=== PATIENT | male | born 1965 | race Caucasian/White ===

== ENCOUNTER 2016-12-20 14:43 | Day surgery (SDC) | payer OTHER ==
[~2016-12-20] VITALS: Ht 170.2 cm; Wt 88.5 kg
[~2016-12-20 14:43] MED LIST: AMLO10TA3 PO; BACL10TA PO; HYDR-3740 PO; KEN25CR EXT; LORA2TAB PO; NORT75CA PO; OMEP-113 PO; ONDA4TAB6 PO; PRE20 PO; SECU150P2 SQ; SUCR1TAB30 PO; Sodium Chloride LOK Flush 10 mL Syringe IV PRN; TRAM50TA2 PO; fentaNYL-PF 50 mCg/mL 2 mL Inj IVPUSH PRN
[2016-12-20 15:14] VITALS: BP 138/95; PULSE 79; RESP 16; O2SAT 96
[2016-12-20] MEDS ORDERED: LAMO200T2 PO (15:20)
[2016-12-20] MEDS ORDERED: LAMO25TA PO (15:20)
[2016-12-20] MEDS ORDERED: BUSP10TA2 PO (15:20)
[2016-12-20] MEDS: 0.9% Sodium Chloride 1,000 ML IV SCH ×2 (15:56→16:02)
[2016-12-20 16:08] VITALS: BP 130/91; PULSE 75; RESP 16; O2SAT 93
[2016-12-20 16:18] VITALS: BP 138/88; PULSE 76; RESP 14; O2SAT 93
[2016-12-20 16:28] VITALS: BP 134/83; PULSE 76; RESP 14; O2SAT 93
[2016-12-20 16:38] VITALS: BP 133/83; PULSE 67; RESP 14; O2SAT 93
[2016-12-20 16:47] VITALS: BP 145/96; PULSE 72; RESP 14; O2SAT 94
--- NOTE | 2016-12-20 23:28 | ENDO ---
[address] [address] ENDOSCOPY PROCEDURE PATIENT: DEB CONNELLY : 1965 MR#: [id number] ADMIT: 12/20/2016 JOB ID: [id number] DATE OF SERVICE: 12/20/2016 OPERATIVE PROCEDURE: Colonoscopy. PREOPERATIVE DIAGNOSIS(ES): Rectal bleeding. POSTOPERATIVE DIAGNOSIS(ES): 1. Anal skin tag. 2. Small internal hemorrhoids. ANESTHESIA: 1. Fentanyl 125 mcg. 2. Versed 7 mg IV administered. COMPLICATIONS: None. BLOOD LOSS: Minimal. DESCRIPTION OF PROCEDURE: After risks and benefits were explained to the patient, informed consent was obtained. After anesthesia administered, colonoscope was inserted from the rectum to the cecum and mucosa carefully examined. Prep of the patient was suboptimal. After procedure was done, the scope withdrawn and procedure terminated. FINDINGS: Upon inspection of the anus, no masses, hemorrhoids, ulcers, or fissures that were seen. There was an anal skin tag. Throughout the entire examination, no polyps, masses or lesions. Retroflexion showed small internal hemorrhoids. There is also stool that was seen throughout the entire colon with several washes that needed be performed. IMPRESSIONS: 1. Small internal hemorrhoids. 2. Suboptimal prep. 3. Anal skin tag. RECOMMENDATIONS: [id number] Preparation-H, stool softer as needed, repeat colonoscopy in 3-5 years given the prep for colorectal cancer screening.
== END 2016-12-20 23:59 | disposition home or self-care (01) ==
LOC: END 14:43
PROVIDERS: ATTEND Internal Medicine Gastroenterology
DX: K64.8 Other hemorrhoids (principal); K64.4 Residual hemorrhoidal skin tags; K62.5 Hemorrhage of anus and rectum; K59.00 Constipation, unspecified; I10 Essential (primary) hypertension; E78.5 Hyperlipidemia, unspecified; F32.9 Major depressive disorder, single episode, unspecified; F41.9 Anxiety disorder, unspecified; M02.30 Reiter's disease, unspecified site; M50.30 Other cervical disc degeneration, unspecified cervical region; M51.36 Other intervertebral disc degeneration, lumbar region; F12.90 Cannabis use, unspecified, uncomplicated; G89.29 Other chronic pain; F17.210 Nicotine dependence, cigarettes, uncomplicated; Z79.52 Long term (current) use of systemic steroids; Z79.891 Long term (current) use of opiate analgesic; Z86.010 Personal history of colon polyps
CPT/HCPCS: 45378; 99152; J2250; J3010; J7030